=== PATIENT | female | born 1975 | race American Indian/Alaskan Native ===

== ENCOUNTER 2016-12-08 08:53 | Emergency (ER) | payer SELFPAY ==
[2016-12-08] MEDS ORDERED: DECADRON IM ONE (11:46)
[2016-12-08] MEDS ORDERED: DUONEB 0.5 MG-3 MG/3 ML SOLN IH ONE (11:47)
--- NOTE | 2016-12-08 11:48 | Emergency Department Report ---
- General Chief Complaint: Upper Respiratory Infection Stated Complaint: COUGH Time Seen by Provider: 12/08/16 11:12 Source: patient Mode of arrival: Ambulatory Limitations: No Limitations - History of Present Illness MD Complaint: fever, cough, sore throat, nasal congestion - Related Data Previous Rx's Medication Instructions Recorded Last Taken Type ALBUTEROL Inhaler [ProAir HFA 2 puff IH QID PRN #1 inhalation 12/08/16 Unknown Rx Inhaler] Azithromycin [Zithromax TAB] 250 mg PO QDAY #6 tablet 12/08/16 Unknown Rx methylPREDNISolone [Medrol] 4 mg PO QDAY #1 tab.ds.pk 12/08/16 Unknown Rx Allergies Allergy/AdvReac Type Severity Reaction Status Date / Time No Known Allergies Allergy Unverified 12/08/16 09:11 ED Review of Systems ROS: Stated complaint: COUGH Other details as noted in HPI ED Past Medical Hx - Past Medical History Previous Medical History?: No - Social History Smoking Status: Never Smoker Substance Use Type: None - Medications Home Medications: Home Medications Medication Instructions Recorded Confirmed Last Taken Type ALBUTEROL Inhaler [ProAir HFA 2 puff IH QID PRN #1 inhalation 12/08/16 Unknown Rx Inhaler] Azithromycin [Zithromax TAB] 250 mg PO QDAY #6 tablet 12/08/16 Unknown Rx methylPREDNISolone [Medrol] 4 mg PO QDAY #1 tab.ds.pk 12/08/16 Unknown Rx ED Physical Exam - General Limitations: No Limitations General appearance: alert, in no apparent distress - Head Head exam: Present: atraumatic, normocephalic - Eye Eye exam: Present: normal appearance - ENT ENT exam: Present: mucous membranes moist - Neck Neck exam: Present: normal inspection - Respiratory Respiratory exam: Present: wheezes (mild expiratory wheezing bilaterally). Absent: normal lung sounds bilaterally, respiratory distress, rales, rhonchi, stridor, chest wall tenderness, accessory muscle use, decreased breath sounds, prolonged expiratory - Cardiovascular Cardiovascular Exam: Present: regular rate, normal rhythm. Absent: systolic murmur, diastolic murmur, rubs, gallop - GI/Abdominal GI/Abdominal exam: Present: soft, normal bowel sounds - Extremities Exam Extremities exam: Present: normal inspection - Back Exam Back exam: Present: normal inspection - Neurological Exam Neurological exam: Present: alert, oriented X3 - Psychiatric Psychiatric exam: Present: normal affect, normal mood - Skin Skin exam: Present: warm, dry, intact, normal color. Absent: rash ED Course Vital Signs 12/08/16 12/08/16 12/08/16 09:11 12:30 12:48 Temperature 97.9 F Pulse Rate 73 Pulse Rate [ 73 78 Anterior Bilateral Throughout] Respiratory 18 Rate Respiratory 18 18 Rate [Anterior Bilateral Throughout] Blood Pressure 115/73 Blood Pressure [Right] O2 Sat by Pulse 99 Oximetry 12/08/16 13:12 Temperature 98.5 F Pulse Rate 99 H Pulse Rate [ Anterior Bilateral Throughout] Respiratory 20 Rate Respiratory Rate [Anterior Bilateral Throughout] Blood Pressure Blood Pressure 138/85 [Right] O2 Sat by Pulse 100 Oximetry - Reevaluation(s) Reevaluation #1: 12/08/16 13:01 Patient's breathing improved patient resting comfortably no distress noted patient will be discharged at this time ED Medical Decision Making - Radiology Data Radiology results: report reviewed Unremarkable x-ray of chest Critical care attestation.: If time is entered above; I have spent that time in minutes in the direct care of this critically ill patient, excluding procedure time. ED Disposition Clinical Impression: Bronchitis Disposition: DISCHARGED TO HOME OR SELFCARE Is pt being admited?: No Condition: Stable Instructions: Chronic Bronchitis (ED) Prescriptions: ALBUTEROL Inhaler [ProAir HFA Inhaler] 2 puff IH QID PRN #1 inhalation PRN Reason: Shortness Of Breath Azithromycin [Zithromax TAB] 250 mg PO QDAY #6 tablet methylPREDNISolone [Medrol] 4 mg PO QDAY #1 tab.palma Referrals: PRIMARY CARE, [Primary Care Provider] - 3-5 Days
--- NOTE | 2016-12-08 12:11 | XRay Report ---
ROUTINE CHEST, TWO VIEWS: HISTORY: Fever. The trachea, heart, mediastinal contour, lung ruelas and bony thorax are unremarkable. IMPRESSION: Unremarkable chest x-ray.
[2016-12-08 13:13] VITALS: BP 138/85
== END 2016-12-08 13:55 | disposition home or self-care (01) ==
LOC: ED 08:53
DX: J40 Bronchitis, not specified as acute or chronic (principal)
CPT/HCPCS: 71020; 94640; 96372; 99283; J1100

== ENCOUNTER 2017-07-01 05:18 | Emergency (ER) | payer MEDICAID ==
[2017-07-01 05:42] VITALS: BP 122/80
[2017-07-01] MEDS ORDERED: TYLENOL/CODEINE PO ONE (07:34)
[2017-07-01] MEDS ORDERED: MOTRIN PO ONE (07:35)
--- NOTE | 2017-07-01 08:40 | XRay Report ---
ROUTINE CHEST, TWO VIEWS: HISTORY: Productive cough. The trachea, heart, mediastinal contour, lung ruelas and bony thorax are unremarkable. IMPRESSION: Unremarkable chest x-ray.
--- NOTE | 2017-07-01 09:01 | Emergency Department Report ---
Pediatric URI - HPI Chief Complaint: Sore Throat Stated Complaint: SORE THROAT Duration: 2 Days Pain Location: Throat Severity: Mild Symptoms: Yes Rhinorrhea, Yes Sore Throat, Yes Cough, Yes Able to Tolerate Fluids, Yes Good Urine Output, No Ear Pain, No Shortness of Breath, No Sick Contacts, No Listless Behavior Other History: 42 year old female presents to ED with sore throat, productive cough, sinus tenderness/drainage x2 days. patient is stable, neurologically intact and in no acute distress. ED Review of Systems ROS: Stated complaint: SORE THROAT Other details as noted in HPI Constitutional: denies: chills, fever, weakness Eyes: denies: eye pain, eye discharge, vision change ENT: throat pain, congestion Respiratory: cough. denies: shortness of breath, wheezing Cardiovascular: denies: chest pain, palpitations Endocrine: no symptoms reported Gastrointestinal: denies: abdominal pain, nausea, diarrhea Genitourinary: denies: urgency, dysuria, discharge Musculoskeletal: denies: back pain, joint swelling, arthralgia Skin: denies: rash, lesions Neurological: denies: headache, weakness, paresthesias Psychiatric: denies: anxiety, depression Hematological/Lymphatic: denies: easy bleeding, easy bruising ED Peds URI Exam - Exam General: Vital signs noted. No distress. Alert and acting appropriately. HEENT: Yes Pharyngeal Erythema, Yes Moist Mucous Membranes, Yes Rhinorrhea, Yes Frontal Tenderness, No Pharyngeal Exudates, No Conjuctival Injection, No Maxillary Tenderness Ear: Neither TM Bulge, Neither TM Erythema, Neither EAC Pain, Neither EAC Discharge, Neither Cerumen Impaction Neck: Yes Supple, No Adenopathy Lungs: Yes Good Air Exchange, Yes Cough, No Wheezes, No Ronchi, No Stridor, No Labored Respirations, No Retractions, No Use of Accessory Muscles, No Other Abnormal Lung Sounds Heart: Yes Regular, No Murmur Abdomen: Yes Normal Bowel Sounds, No Tenderness, No Peritoneal Signs Skin: No Rash, No Eczema Neurologic: Alert and oriented, no deficits. Musculoskeletal: Unremarkable. ED Course Vital Signs 07/01/17 05:23 Temperature 98.1 F Pulse Rate 87 Respiratory 18 Rate Blood Pressure 122/80 O2 Sat by Pulse 99 Oximetry ED Medical Decision Making - Lab Data negative rapid strep - Radiology Data Radiology results: report reviewed XR chest unremarkable chest xray per radiologist. - Medical Decision Making 42 year old female presents to ED with congestion, cough, sinus tenderness/ drainage x2days. patient is stable, neurologically intact and in no acute distress. patient states LMP was 06/20/17. patient has negative rapid strep and negative imaging of chest. Critical care attestation.: If time is entered above; I have spent that time in minutes in the direct care of this critically ill patient, excluding procedure time. ED Disposition Clinical Impression: Sinusitis, acute Qualifiers: Sinusitis location: frontal Recurrence: non-recurrent Qualified Code(s): J01.10 - Acute frontal sinusitis, unspecified Disposition: DC-01 TO HOME OR SELFCARE Is pt being admited?: No Does the pt Need Aspirin: No Condition: Stable Instructions: Sinusitis (ED), Acute Bronchitis (ED) Prescriptions: Azithromycin [Zithromax Z-ANTONELLA] 250 mg PO QAM #1 pack Guaifen/Dextromethorphan/PE [Cough-Cold Syrup] 10 ml PO BID #118 ml Referrals: PRIMARY CARE, [Primary Care Provider] - 3-5 Days Forms: Work/School Release Form(ED)
== END 2017-07-01 09:06 | disposition home or self-care (01) ==
LOC: ED 05:18
DX: J01.10 Acute frontal sinusitis, unspecified (principal)
CPT/HCPCS: 71020; 87116; 87430

== ENCOUNTER 2018-12-18 08:02 | Emergency (ER) | payer MEDICAID, OTHER ==
[2018-12-18 08:35] LABS: Eosinophils # (Auto) 0.2 K/mm3 (0.0-0.4); Eosinophils % (Auto) 4.7 % (0.0-4.3); Hematocrit 28.5 % (30.3-42.9); Hemoglobin 9.1 gm/dl (10.1-14.3); Lymphocytes % (Auto) 22.3 % (13.4-35.0); Mean Corpuscular HGB Conc 32 % (30-34); Mean Corpuscular Volume 75 fl (79-97); Monocytes # (Auto) 0.5 K/mm3 (0.0-0.8); Platelet Count 435 K/mm3 (140-440); Red Blood Count 3.78 M/mm3 (3.65-5.03)
[2018-12-18 08:59] LABS: Alanine Aminotransferase 17 units/L (7-56); Albumin 3.9 g/dL (3.9-5); BUN/Creatinine Ratio 13; Blood Urea Nitrogen 8 mg/dL (7-17); Calcium 8.9 mg/dL (8.4-10.2); Hemolysis Index 10
[2018-12-18 09:08] LABS: HCG Qualitative,Urine Negative (Negative)
[2018-12-18 09:11] LABS: Bilirubin,Urine NEG (Negative); Blood,Urine NEG (Negative); Color,Urine Yellow (Yellow); Mucus,Urine FEW /HPF; Protein,Urine <15 mg/dL mg/dL (Negative); Urobilinogen,Urine < 2.0 mg/dL (<2.0)
--- NOTE | 2018-12-18 13:07 | Ultrasound Report ---
PROCEDURE: US transabdominal and TRANSVAGINAL TECHNIQUE: Real-time transabdominal sonography in multiple planes of the pelvis was performed. The p elvic structures, especially the ovaries, were not optimally visualized. Transvaginal sonography was then performed to better evaluate the structures and/or abnormalities described below with image docu mentation. HISTORY: pelvic pain and pressure COMPARISONS: None . FINDINGS: UTERUS Size: 11.4 x 5.9 x 7.1 cm. Endometrial thickness: 16 mm. Orientation: Anteverted. Cervix: 1 cm avascular complex lesion may be a complex nabothian cyst. Fibroids/masses: There are multiple uterine fibroids present. Some of the largest are as follows: 1.6 cm fibroid in the anterior fundus, 2.6 cm fibroid in the right body submucosal region, 2.6 cm fibroi d in the posterior body, 2.1 cm fibroid in the anterior body. RIGHT Ovary: 4.1 x 2.4 x 3.4 cm. Appearance: Normal. LEFT Ovary: 4.2 x 2.3 x 3.3 cm. Appearance: Normal. Pelvic fluid: None. Other: None. IMPRESSION: Multiple uterine fibroids. Endometrium measures 16 mm in thickness, which is mildly thickened. Recomm end follow-up/further evaluation. This document is electronically signed by Sveta Ennis MD., December 18 2018 01:05:20 PM ET
[2018-12-18 13:27] VITALS: BP 126/72
--- NOTE | 2018-12-18 13:46 | Emergency Department Report ---
ED Female HPI - General Chief complaint: Abdominal Pain Stated complaint: BLADDER INFECTION Time Seen by Provider: 12/18/18 09:04 Source: patient Mode of arrival: Ambulatory Limitations: No Limitations - History of Present Illness MD Complaint: vaginal discharge, dysuria, pelvic pain -: Gradual Location: suprapubic Radiation: non-radiating Quality: dull Consistency: constant Improves with: none Worsens with: none Are you Now?: No Associated Symptoms: vaginal discharge (vaginal discharge and itching. She feels is secondary to a pelvic detergent. She use for the first time. Also be treated for bacterial vaginosis, but thinks he may also have urinary tract infection. Having pelvic pressure and is concerned about the pressure as well. No vaginal bleeding. No burning with urination but has noticed some increased urgency and increased frequency). denies: vaginal bleeding, abdominal pain, nausea/vomiting, loss of appetite, dysuria, syncope, weakness - Related Data Sexually active: No Previous Rx's Medication Instructions Recorded Last Taken Type ALBUTEROL Inhaler (OR & NICU) 2 puff IH QID PRN #1 inhalation 12/08/16 Unknown Rx [ProAir HFA Inhaler] Azithromycin [Zithromax TAB] 250 mg PO QDAY #6 tablet 12/08/16 Unknown Rx methylPREDNISolone [Medrol] 4 mg PO QDAY #1 tab.ds.pk 12/08/16 Unknown Rx Azithromycin [Zithromax Z-ANTONELLA] 250 mg PO QAM #1 pack 07/01/17 Unknown Rx Guaifen/Dextromethorphan/PE 10 ml PO BID #118 ml 07/01/17 Unknown Rx [Cough-Cold Syrup] Nitrofurantoin Monohyd/M-Cryst 100 mg PO BID #20 capsule 12/18/18 Unknown Rx [Macrobid 100 mg Capsule] metroNIDAZOLE [Flagyl] 500 mg PO Q12HR #14 tab 12/18/18 Unknown Rx Allergies Allergy/AdvReac Type Severity Reaction Status Date / Time No Known Allergies Allergy Unverified 12/08/16 09:11 ED Review of Systems ROS: Stated complaint: BLADDER INFECTION Other details as noted in HPI Constitutional: denies: chills, fever Eyes: denies: eye pain, eye discharge, vision change ENT: denies: ear pain, throat pain Respiratory: denies: cough, shortness of breath, wheezing Cardiovascular: denies: chest pain, palpitations Endocrine: no symptoms reported Gastrointestinal: denies: abdominal pain, nausea, diarrhea Genitourinary: denies: urgency, dysuria, discharge Musculoskeletal: denies: back pain, joint swelling, arthralgia Skin: denies: rash, lesions Neurological: denies: headache, weakness, paresthesias Psychiatric: denies: anxiety, depression Hematological/Lymphatic: denies: easy bleeding, easy bruising ED Past Medical Hx - Past Medical History Previous Medical History?: No - Surgical History Past Surgical History?: No - Social History Smoking Status: Never Smoker Substance Use Type: None - Medications Home Medications: Home Medications Medication Instructions Recorded Confirmed Last Taken Type ALBUTEROL Inhaler (OR & NICU) 2 puff IH QID PRN #1 inhalation 12/08/16 Unknown Rx [ProAir HFA Inhaler] Azithromycin [Zithromax TAB] 250 mg PO QDAY #6 tablet 12/08/16 Unknown Rx methylPREDNISolone [Medrol] 4 mg PO QDAY #1 tab.ds.pk 12/08/16 Unknown Rx Azithromycin [Zithromax Z-ANTONELLA] 250 mg PO QAM #1 pack 07/01/17 Unknown Rx Guaifen/Dextromethorphan/PE 10 ml PO BID #118 ml 07/01/17 Unknown Rx [Cough-Cold Syrup] Nitrofurantoin Monohyd/M-Cryst 100 mg PO BID #20 capsule 12/18/18 Unknown Rx [Macrobid 100 mg Capsule] metroNIDAZOLE [Flagyl] 500 mg PO Q12HR #14 tab 12/18/18 Unknown Rx ED Physical Exam - General Limitations: No Limitations General appearance: alert, in no apparent distress - Head Head exam: Present: atraumatic, normocephalic - Eye Eye exam: Present: normal appearance, PERRL, EOMI Pupils: Present: normal accommodation - ENT ENT exam: Present: normal exam, normal orophraynx, mucous membranes moist - Neck Neck exam: Present: normal inspection, full ROM - Respiratory Respiratory exam: Present: normal lung sounds bilaterally. Absent: respiratory distress, wheezes, rales, chest wall tenderness, accessory muscle use, decreased breath sounds - Cardiovascular Cardiovascular Exam: Present: regular rate, normal rhythm. Absent: systolic murmur, diastolic murmur, rubs, gallop - GI/Abdominal GI/Abdominal exam: Present: soft, tenderness (the suprapubic region with deep p alpation), normal bowel sounds. Absent: guarding, hypoactive bowel sounds, organomegaly, mass - Extremities Exam Extremities exam: Present: normal inspection - Back Exam Back exam: Present: normal inspection, full ROM. Absent: CVA tenderness (R), CVA tenderness (L), muscle spasm - Neurological Exam Neurological exam: Present: alert, oriented X3 - Psychiatric Psychiatric exam: Present: normal affect, normal mood - Skin Skin exam: Present: warm, dry, intact, normal color. Absent: rash ED Course Vital Signs 12/18/18 12/18/18 08:07 13:26 Temperature 97.7 F Pulse Rate 75 68 Respiratory 16 20 Rate Blood Pressure 115/65 Blood Pressure 126/72 [Right] O2 Sat by Pulse 99 99 Oximetry ED Medical Decision Making - Lab Data Result diagrams: 12/18/18 08:23 12/18/18 08:23 - Radiology Data Radiology results: report reviewed ([place] reveals multiple uterine fibroids and a complex cervical cyst.) - Medical Decision Making Discussion Ms. Scanlon great detail the findings of the ultrasound report and the need to follow with [employer] RE[employer] for definitive management. Also discussed her va ginal discharge which she did request treatment with treatment for bacterial vaginosis as well and treatment for UTI. She has not had a UTI and history is unsure of what her typical symptoms were treated the pelvic pressure, dysuria, polyuria and increased urgency. We will treat Critical care attestation.: If time is entered above; I have spent that time in minutes in the direct care of this critically ill patient, excluding procedure time. ED Disposition Clinical Impression: Vaginal discharge, Uterine fibroid, Dysuria Disposition: - TO HOME OR SELFCARE Is pt being admited?: No Does the pt Need Aspirin: No Condition: Stable Instructions: Vaginitis (ED), Dysuria (ED), Abdominal Pain (ED) Prescriptions: metroNIDAZOLE [Flagyl] 500 mg PO Q12HR #14 tab Nitrofurantoin Monohyd/M-Cryst [Macrobid 100 mg Capsule] 100 mg PO BID #20 capsule Referrals: ANA CAMPOS MD [Primary Care Provider] - 3-5 Days
== END 2018-12-18 13:26 | disposition home or self-care (01) ==
LOC: ED 08:02
DX: D25.9 Leiomyoma of uterus, unspecified (principal)
CPT/HCPCS: 36415; 76830; 76856; 80053; 81001; 81025; 85025